=== PATIENT | female | born 1995 | race Caucasian/White ===

== ENCOUNTER 2016-07-12 22:57 | Emergency (ER) | payer OTHER ==
--- NOTE | ~2016-07-12 | ER ---
PATIENT'S NAME: TANIKA CHAPMAN [facility] AGE: 21 Y [address] ROOM: [place] [address] LOCATION: [facility] ADMIT DATE: 07/12/2016 ER/Outpatient Report DISCHARGE DATE: 07/13/2016 FAMILY PHYSICIAN: Arturo Morales MD ATTENDING PHYSICIAN: Silvia Mendiola HISTORY OF PRESENT ILLNESS: This is a 21-year-old female who presents with throat pain, status post tonsillectomy and one episode of vomiting. She says that she had her tonsils out on 07/07/[address] Dawson and since then she has had this sort of pain. Since then, she has been trying liquid hydrocodone, liquid Tylenol, and says nothing is helping. Today, she had one episode of vomiting and she thinks it is because of her pain. She denies any abdominal pain. She does not have any other symptoms like fever, chills, urinary symptoms. Emesis was nonbloody, nonbilious. She says her throat pain is just constant 9/10. No fever or chills. No other hoarse voice. No airway issues, no shortness of breath. No other complaints. PAST MEDICAL HISTORY: None. SURGICAL HISTORY: Tonsillectomy and ear tubes. SOCIAL HISTORY: She does not smoke, drink, or use any drugs. ROS: Reviewed by me and negative with the exception of those discussed in HPI. PHYSICAL EXAMINATION: VITAL SIGNS: She is 5 feet 4 inches, she weighs 79 kilos, blood pressure 129/84, heart rate 89, respiratory rate 18, temperature is 98.7, saturating 97% on room air. GENERAL: The patient is speaking to me in full sentences. She is nontoxic appearing. She is alert and oriented x4, speaking in full sentences. No hoarse voice. HEENT: She is status post tonsillectomy and it looks fine in the back. I do not see any exudates. There is no bleeding. She has no lymphadenopathy. HEART: Heart rate is regular rate and rhythm. LUNGS: Her lung sounds are clear. ABDOMEN: Soft, nontender, nondistended. SKIN: She has no rash. EMERGENCY ROOM COURSE: PATIENT'S NAME: TANIKA CHAPMAN [facility] AGE: 21 Y [address] ROOM: [place], [place] [address] LOCATION: [facility] ADMIT DATE: 07/12/2016 ER/Outpatient Report DISCHARGE DATE: 07/13/2016 FAMILY PHYSICIAN: Arturo Morales MD ATTENDING PHYSICIAN: Silvia Mendiola We tried giving her viscous lidocaine, which did not really help. We also gave her Carafate, which did not really help either. The patient says she would like to try some Percocet. She says that she has had that in the past and that has helped her. She states that she feels okay to go home with a script for that and she will try and swallow it. She is continuing to use the liquid hydrocodone and Tylenol. She understands the reasons to follow up in the ER sooner. In the meantime, she will follow up with Dr. Dawson. We will call him tomorrow morning. IMPRESSION: Throat pain, status post tonsillectomy. MD TRISTEN BECK/charlil /[id number] d: 07/13/16951 t: 08/11/16 1101, OUTPATIENT REPORT
[~2016-07-12 22:57] MED LIST: FIORICET 50-301 EACH PO; FLOVENT 110 M110 MCG INH; PROVENTIL OR V6.7 GM INH; SINGULAIR10 MG PO; ZOVIRAX800 MG PO
== END 2016-07-13 01:34 | disposition disaster alternative care site (69) ==
LOC: GMED 22:57
DX: G89.18 Other acute postprocedural pain (principal); R07.0 Pain in throat; Z90.89 Acquired absence of other organs; Z88.2 Allergy status to sulfonamides

== ENCOUNTER 2016-11-08 19:09 | Emergency (ER) | payer OTHER ==
--- NOTE | ~2016-11-08 | ER ---
PATIENT'S NAME: TIERRA CHAPMAN Nasir [facility] AGE: 21 Y [address] ROOM: [place] [address] LOCATION: ED ADMIT DATE: 11/08/2016 ER/Outpatient Report DISCHARGE DATE: 11/08/2016 FAMILY PHYSICIAN: Arturo Morales MD ATTENDING PHYSICIAN: Isaac Albert Time of Arrival: 1911 hours. Time of Exam: 1920 hours. CHIEF COMPLAINT: Headache. HISTORY OF PRESENT ILLNESS: The patient states she has had a migraine headache since November 04. States it is primarily at the temporal area. She has felt feverish and chilled at times. Has had some blurred vision. Denies being nauseated, has not vomited. Denies having any neck pain. Denies having any change in her bowel or bladder pattern. Denies any injury. Reports it is similar to headaches that she has had in the past. ALLERGIES: SULFA. CURRENT MEDICATIONS: On the chart and reviewed by me. PAST MEDICAL HISTORY: Migraine headaches. PAST SURGICAL HISTORY: Tonsillectomy and ear tubes. SOCIAL HISTORY: She denies use of tobacco, drugs, or alcohol. REVIEW OF SYSTEMS: All negative other than those mentioned in the HPI. PHYSICAL EXAMINATION: VITAL SIGNS: She weighed 84.1 kg. Blood pressure is 123/76, pulse of 113, respirations 20, temperature of 101.7 tympanic, and O2 saturation was 96% on room air. GENERAL: She is awake, alert, and oriented x4. SKIN: [place], warm, and dry. RESPIRATIONS: Even and nonlabored. TMs are pearly [place]. Nasal is boggy. PATIENT'S NAME: TANIKA CHAPMAN [facility] AGE: 21 Y [address] ROOM: [place] [address] LOCATION: ED ADMIT DATE: 11/08/2016 ER/Outpatient Report DISCHARGE DATE: 11/08/2016 FAMILY PHYSICIAN: Arturo Morales MD ATTENDING PHYSICIAN: Isaac Albert Oropharynx is slightly red posteriorly. No exudate is noted. NECK: Supple. No lymphadenopathy. LUNGS: Lung sounds are clear throughout. HEART: Regular rate and rhythm. ABDOMEN: Soft, nondistended. Bowel sounds are present. EMERGENCY ROOM COURSE: The patient was given Toradol 60 mg IM. IMPRESSION: Headache. PLAN: Home, rest, fluids. Tylenol or ibuprofen as needed for fever or discomfort. Follow up with her primary provider if symptoms persist or worsen. She verbalized understanding. DANAY MCFARLAND APRN FOR MD JAYSON SOLORZANO/nasreen /[id number] d: 11/08/16 2336 t: 11/10/16 1549, OUTPATIENT REPORT
== END 2016-11-08 19:41 | disposition disaster alternative care site (69) ==
LOC: GMED 19:09
DX: R51 Headache (principal); Z88.2 Allergy status to sulfonamides; Z98.890 Other specified postprocedural states; Z79.899 Other long term (current) drug therapy
CPT/HCPCS: J1885